=== PATIENT | male | born 1965 | race Hispanic/Latino ===

== ENCOUNTER 2023-04-04 13:28 | Emergency (ER) | payer OTHER ==
[~2023-04-04] VITALS: Ht 170.2 cm; Wt 91.6 kg
[2023-04-04] MEDS ORDERED: BENZONATATE100 MG PO (15:32)
== END 2023-04-04 15:41 | disposition home or self-care (01) ==
LOC: ER 13:32
DX: R05.9 Cough, unspecified (principal); J06.9 Acute upper respiratory infection, unspecified; Z20.822 Contact with and (suspected) exposure to COVID-19
CPT/HCPCS: 71046; 99283; U0002